=== PATIENT | female | born 2000 | race Two or more races ===

== ENCOUNTER 2019-03-14 15:03 | Emergency (ER) | payer OTHER ==
[~2019-03-14] VITALS: Ht 162.6 cm; Wt 68.9 kg
[2019-03-14 15:15] VITALS: BP 128/61
[2019-03-14 15:32] LABS: BILIRUBIN,URINE NEGATIVE (NEG); CLARITY,URINE CLEAR; COLOR,URINE YELLOW; NITRITE,URINE NEGATIVE (NEG); PROTEIN,URINE NEGATIVE (NEG-TRACE); UROBILINOGEN,URINE 0.2 mg/dL (0.2 mg/dL)
[2019-03-14 15:37] LABS: BACTERIA,URINE 0 /HPF (0-FEW); RBC,URINE 0 /HPF (0-2); SQUAMOUS EPITHELIAL CELL,UR OCC /LPF; WBC,URINE 0 /HPF (0-4)
[2019-03-14] MEDS ORDERED: ACETAMINOPHEN 500 MG TABLET PO ONE (16:45)
[2019-03-14] MEDS ORDERED: AZITHROMYCIN 250 MG TABLET. PO ONE (16:45)
[2019-03-14] MEDS ORDERED: METR500T PO (17:06)
--- NOTE | 2019-03-14 17:06 | PHYS DOC ---
Past Medical History Past Medical History: Asthma, GERD, Other Additional Past Medical Histor: PEPTIC ULCER DISEASE,MITRAL VALVE ISSUES Past Surgical History: No Surgical History Alcohol Use: Occasionally Drug Use: None Adult General Chief Complaint Chief Complaint: PELVIC PAIN HPI HPI 18 y/o female presents to ER for c/o 3 days of pelvic pain with lg amt of white discharge and foul discharge smell. Patient states she is also had dysuria and denies any hematuria, lower back pain, or nausea and vomiting. Patient states she had unprotected sexual intercourse and found out that the clovis had been with multiple other people. Patient is requesting treatment for possible STDs. LMP 02/23/19. She reports she is not currently on control. Review of Systems Review of Systems Constitutional: Denies fever or chills [] Eyes: Denies change in visual acuity, redness, or eye pain [] HENT: Denies nasal congestion or sore throat [] Respiratory: Denies cough or shortness of breath [] Cardiovascular: No additional information not addressed in HPI [] GI: Denies abdominal pain, nausea, vomiting, bloody stools or diarrhea [] : Reports dysuria. Denies hematuria. Reports vaginal discharge w/foul odor- pelvic pain. Denies abnorm. vag bleeding Musculoskeletal: Denies back pain or joint pain [] Integument: Denies rash or skin lesions [] Neurologic: Denies headache, focal weakness or sensory changes [] All other systems were reviewed and found to be within normal limits, except as documented in this note. Current Medications Current Medications Current Medications Medications (Trade) Dose Ordered Sig/Maura Start Time Stop Time Status Last Admin Dose Admin Acetaminophen (Tylenol) 1,000 mg 1X ONCE 03/14/19 16:45 03/14/19 16:49 DC 03/14/19 17:00 1,000 MG Azithromycin (Zithromax) 2,000 mg 1X ONCE 03/14/19 16:45 03/14/19 16:49 DC 03/14/19 17:00 2,000 MG Allergies Allergies Allergies Coded Allergies Type Severity Reaction Last Updated Verified Penicillins Allergy Severe ANAPHYLAXIS 03/14/19 Yes ziprasidone Allergy Severe ANAPHYLAXIS 03/14/19 Yes Influenza Virus Vaccines Adverse Reaction Intermediate NAUSEA AND VOMITING 03/14/19 Yes Physical Exam Physical Exam Constitutional: Well developed, well nourished, no acute distress, non-toxic appearance. [] HENT: Normocephalic, atraumatic, oropharynx moist, no oral exudates, nose normal. [] Eyes: Pupils equal, conjunctiva normal, no discharge. [] Neck: Normal range of motion, supple, no stridor. [] Cardiovascular:Heart rate regular rhythm, no murmur [] Lungs & Thorax: Bilateral breath sounds clear to auscultation- resp. equal/nonlabored Abdomen: Bowel sounds normal, soft, no tenderness/distention Skin: Warm, dry, no erythema, no rash. [] Back: No tenderness, no CVA tenderness. [] Extremities: No tenderness, no cyanosis, no clubbing, ROM intact, no edema. [] Neurologic: Alert and oriented X 3, normal motor function, normal sensory function, no focal deficits noted. [] Psychologic: Affect normal, judgement normal, mood normal. [] Pelvic Exam: RN Beau present Abdomen: Nontender External Genitalia: Normal Skin- no rash/lesions Speculum: Erythematous vaginal vault- no lesions. Cervical os closed. Copious amts of thick yellowish/foul smelling vaginal discharge. No blood in vag. vault Bimanual: No adnexal masses or tenderness on palp. of abd. CMT+ Current Patient Data Vital Signs Vital Signs Date Time Temp Pulse Resp B/P (MAP) Pulse Ox O2 Delivery O2 Flow Rate FiO2 03/14/19 15:15 98.1 78 13 128/61 (83) 98 Room Air 98.1 Lab Values Laboratory Tests Test 03/14/19 15:12 03/14/19 15:26 Urine Collection Type Void Urine Color Yellow Urine Clarity Clear Urine pH 5.0 Urine Specific [place] >=1.030 Urine Protein Negative mg/dL (NEG-TRACE) Urine Glucose (UA) Negative mg/dL (NEG) Urine Ketones (Stick) Negative mg/dL (NEG) Urine Blood Negative (NEG) Urine Nitrite Negative (NEG) Urine Bilirubin Negative (NEG) Urine Urobilinogen Dipstick 0.2 mg/dL (0.2 mg/dL) Urine Leukocyte Esterase Negative (NEG) Urine RBC 0 /HPF (0-2) Urine WBC 0 /HPF (0-4) Urine Squamous Epithelial Cells Occ /LPF Urine Bacteria 0 /HPF (0-FEW) Urine Mucus Mod /LPF POC Urine HCG, Qualitative Hcg negative (Negative) Microbiology 03/14/19 Wet Prep - Final, Complete EKG EKG [] Radiology/Procedures Radiology/Procedures [] Course & Med Decision Making Course & Med Decision Making Pertinent Labs reviewed. (See chart for details) Pt was evaluated in the ER for c/o pelvic pain and vaginal discharge w/foul odor. On exam pt had copious amts of yellowish/thick foul smelling vaginal discharge w/erythematous vaginal vault. Discussed plan of care with pt- she will be provided with 2gm Azithromycin (as she has anaphylactic reaction w/PCNs) and sent home with Flagyl Rx. Discussed prophylactic tx with exam findings and pending GC/Chlam. tests. Pt was wanting tx for possible STDs as she had found out her sexual partner had been with others and they hadn't used a condom. Pt had no vaginal bleeding on exam. Discussed test results with her- wet mount was neg. for trich/yeast. UA neg. for infection w/neg UCG. Safe sex discussed and pt advised on need for f/u with PCP and/or PATIENT TRANSPORTER for retesting. Education provided on s&s to return to ER for and d/c instructions were discussed. Patient was provided with dose of Tylenol advised on use of Tylenol and/or ibuprofen for pelvic pain as directed on container. Patient was in no visible distress while in the ER and nontoxic in appearance. Pt's case and plan of care was discussed with Dr. Broussard. Drew Disclaimer Drew Disclaimer This electronic medical record was generated, in whole or in part, using a voice recognition dictation system. Departure Departure Impression: Primary Impression: Concern about STD in female without diagnosis Additional Impression: Bacterial vaginosis Disposition: 01 HOME, SELF-CARE Condition: STABLE Referrals: NO PCP (PCP) Patient Instructions: Bacterial Vaginosis, Safe Sex, Sexually Transmitted Disease Additional Instructions: Follow-up with your primary care physician and or flush tester for reexamination and further care. Follow-up on your test results in 2-3 days for gonorrhea and chlamydia results. Practice safe sex with condom use to avoid further infection. Tylenol and/or ibuprofen as needed for pain as directed on container. Drink plenty of water daily. Scripts Metronidazole (FLAGYL) 500 Mg Tablet 1 TAB PO BID, #14 TAB 0 Refills Avoid drinking alcohol while taking this medication and for 3 days after finishing medication Prov: HARRY RAMOS APRN 03/14/19 Problem Qualifiers HARRY RAMOS APRN March 14, 2019 17:06
[2019-03-16 15:16] LABS: GC PROBE Negative (Negative)
== END 2019-03-14 17:14 | disposition home or self-care (01) ==
LOC: ER 15:03
DX: N76.0 Acute vaginitis (principal); B96.89 Other specified bacterial agents as the cause of diseases classified elsewhere; Z20.2 Contact with and (suspected) exposure to infections with a predominantly sexual mode of transmission; J45.909 Unspecified asthma, uncomplicated; K21.9 Gastro-esophageal reflux disease without esophagitis; Z88.0 Allergy status to penicillin; Z88.7 Allergy status to serum and vaccine; Z88.8 Allergy status to other drugs, medicaments and biological substances
CPT/HCPCS: 81001; 81025; 87491; 87591; 99284; Q0111; Q0144